=== PATIENT | male | born 1980 | race Caucasian/White ===

== ENCOUNTER 2017-11-22 23:09 | Emergency (ER) | payer SELFPAY ==
[~2017-11-22] VITALS: Ht 170.2 cm; Wt 108.9 kg
[~2017-11-22 23:09] MED LIST: ALPR.5 PO; Amoxicillin500 MG PO; BACL10 PO; BUSP15 PO; CYCL10 PO; Colace100 MG PO; Crutch1 EACH MISC; Cyclobenzaprine5 MG PO; HYDR1TAB94 PO; IBUP600 PO; IBUP800 PO; LISI20 PO; LISI5 PO; METCAR750; METPRE4DP PO; NAPR500; NAPR550 PO; Naprosyn500 MG PO; Neurontin 300300 MG PO; Norco 10-325 T1 EACH PO; Norco 5-325 Ta1 EACH PO; PRAHYD1AE TOP; Percocet 10-321 EACH PO; Percocet 5-3251 EACH PO; Percocet 7.5-31 EACH PO; Preparation H C51 GM EXT; Prinivil10 MG; SULI150 PO; TRAZ50; Tylenol325 MG PO
[2017-11-23] MEDS ORDERED: IBUP600 PO (00:30)
[2017-11-23] MEDS ORDERED: Norco 5-325 Ta1 EACH PO (00:33)
== END 2017-11-23 00:50 | disposition home or self-care (01) ==
LOC: ER 23:09
DX: G89.29 Other chronic pain (principal); M54.5 Low back pain; Z88.6 Allergy status to analgesic agent; Z79.899 Other long term (current) drug therapy; F17.200 Nicotine dependence, unspecified, uncomplicated
CPT/HCPCS: 96374; 96375; 99284; J1100; J1885; J3010

== ENCOUNTER 2018-11-16 18:58 | Emergency (ER) | payer SELFPAY ==
[~2018-11-16] VITALS: Ht 170.2 cm; Wt 99.8 kg
[2018-11-16] MEDS ORDERED: CEPH500 PO (20:29)
== END 2018-11-16 20:44 | disposition home or self-care (01) ==
LOC: ER 18:58
DX: S43.401A Unspecified sprain of right shoulder joint, initial encounter (principal); L03.011 Cellulitis of right finger; X58.XXXA Exposure to other specified factors, initial encounter; Z88.6 Allergy status to analgesic agent; F17.210 Nicotine dependence, cigarettes, uncomplicated
CPT/HCPCS: 99283

== ENCOUNTER 2019-11-25 13:23 | Emergency (ER) | payer SELFPAY ==
[~2019-11-25] VITALS: Ht 170.2 cm; Wt 81.7 kg
[~2019-11-25 13:23] MED LIST changes: +CEPH500 PO
== END 2019-11-25 15:56 | disposition home or self-care (01) ==
LOC: ER 13:23
DX: F41.9 Anxiety disorder, unspecified (principal); F17.200 Nicotine dependence, unspecified, uncomplicated; Z88.8 Allergy status to other drugs, medicaments and biological substances; Z91.018 Allergy to other foods
CPT/HCPCS: 36415; 71045; 93005; 93010; 96374; 99284-25; J2060

== ENCOUNTER 2020-01-19 10:22 | Emergency (ER) | payer OTHER ==
[~2020-01-19] VITALS: Ht 170.2 cm; Wt 81.7 kg
[2020-01-19 10:48] LABS: BASOPHILS ABSOLUTE AUTO 0.02 K/mm3 (0.00-0.23); BASOPHILS PERCENT AUTO 0 % (0-2); EOSINOPHILS PERCENT AUTO 6 % (0-6); Hematocrit 49.8 % (37.0-53.0); IMMATURE GRAN ABSOLUTE AUTO 0.07 K/mm3 (0.00-0.10); IMMATURE GRAN PERCENT AUTO 1 % (0-1); LYMPHOCYTES ABSOLUTE AUTO 1.69 K/mm3 (0.84-5.20); LYMPHOCYTES PERCENT AUTO 14 % (21-46); MONOCYTES PERCENT AUTO 9 % (4-13); Mean Corpuscular HGB 31.2 pg (26.0-34.0); Mean Corpuscular HGB Conc 34.1 g/dL (31.5-36.5); Mean Corpuscular Volume 91 fL (80-100); Mean Platelet Volume 8.3 fL (9.1-12.4); NEUTROPHILS ABSOLUTE AUTO 8.24 K/mm3 (1.96-9.15); NEUTROPHILS PERCENT AUTO 70 % (41-73); Platelet Count 328 K/mm3 (150-400); RDW Coefficient Variation 12.8 % (11.7-14.2); RDW Standard Deviation 42.5 fL (35.1-46.3); Red Blood Cell Count 5.45 M/mm3 (4.30-5.90); White Blood Cell Count 11.82 K/mm3 (4.00-11.30)
[2020-01-19 11:07] LABS: Alanine Aminotransfer (ALT/SGP 47 U/L (12-78); Albumin, Blood 3.7 g/dL (3.4-5.0); Albumin/Globulin Ratio 0.9 (0.8-1.8); Alk Phos 80 U/L (50-136); Anion Gap 4 mmol/L (6-16); Aspartate Aminotrans (AST/SGOT 37 U/L (12-37); Bilirubin, Total 0.4 mg/dL (0.1-1.0); Blood Urea Nitrogen 23 mg/dL (8-24); Bun/Creatinine Ratio 30.3 (12.0-20.0); CO2, Blood 26 mmol/L (21-32); Calcium, Blood 9.1 mg/dL (8.5-10.1); Chloride, Blood 106 mmol/L (98-108); Creatinine, Blood 0.76 mg/dL (0.60-1.20); Globulin, Blood 4.1 g/dL (2.2-4.0); Glomerular Filtration Rate >60 (60-); Glucose, Blood 103 mg/dL (70-99); Potassium, Blood 4.1 mmol/L (3.5-5.5); Sodium, Blood 136 mmol/L (136-145); Total Protein, Blood 7.8 g/dL (6.4-8.2)
[2020-01-19 12:13] LABS: Source, Urine Clean Catch
[2020-01-19 12:21] LABS: Bilirubin, Urine Neg (Neg); Blood, Urine Neg (Neg); Glucose Qualitative, Urine Neg (Neg); Ketones, Urine Neg (Neg); Leukocyte Esterase, Urine Neg (Neg); Nitrite, Urine Neg (Neg); Protein, Urine 1+ (Neg); Specific Gravity, Urine 1.015 (1.003-1.022); Urobilinogen, Urine NORM (Normal)
[2020-01-19 12:36] LABS: Appearance, Urine Clear (Clear); Color, Urine Yellow (P-Yellow)
[2020-01-19] MEDS ORDERED: Lomotil Tablet1 EACH PO (14:29)
[2020-01-19] MEDS ORDERED: COMPAZINE10 MG PO (14:29)
== END 2020-01-19 14:38 | disposition home or self-care (01) ==
LOC: ER 10:22
PROVIDERS: Emergency Medicine
DX: A08.4 Viral intestinal infection, unspecified (principal); I10 Essential (primary) hypertension; F17.210 Nicotine dependence, cigarettes, uncomplicated
CPT/HCPCS: 80053; 83690; 85025; 96374; 99283-25; J2405